=== PATIENT | female | born 2000 | race Two or more races ===

== ENCOUNTER 2023-06-22 04:10 | Emergency (ER) | payer OTHER ==
[~2023-06-22] VITALS: Ht 152.4 cm; Wt 52.2 kg
[2023-06-22] MEDS ORDERED: ONDANSETRON HCL 2 MG/ML VIAL IV STA (05:29)
[2023-06-22] MEDS ORDERED: RINGERS SOLUTION,LACTATED 500 ML IV STA (05:29)
[2023-06-22] MEDS ORDERED: FAMOTIDINE/PF 20 MG/2 ML VIAL IV PUSH STA (05:30)
[2023-06-22 05:51] LABS: HEMATOCRIT 37.1 % (36.0-45.00); HEMOGLOBIN 12.9 g/dL (12.0-15.00); MEAN CELL VOLUME 81.9 fL (80.00-100.00); MEAN CORPUSCULAR HEMOGLOBIN 28.6 pg (27.00-32.0); MEAN CORPUSCULAR HGB CONC 34.9 g/dl (32.0-36.0); PLATELET COUNT 251 K/uL (150-450); RED BLOOD COUNT 4.52 M/uL (4.00-6.00); RED CELL DISTRIBUTION WIDTH 13.4 % (11.5-14.5)
[2023-06-22 06:29] LABS: CALCIUM 8.8 mg/dL (8.5-10.1); CREATININE SERUM 0.83 mg/dL (0.55-1.02); GFR 85.19; POTASSIUM 3.27 mEq/L (3.5-5.1)
== END 2023-06-22 07:25 | disposition home or self-care (01) ==
LOC: ER 04:11
DX: F10.10 Alcohol abuse, uncomplicated (principal)